=== PATIENT | female | born 1945 | race American Indian/Alaskan Native ===

== ENCOUNTER 2016-07-07 09:54 | Outpatient (CLI) | payer MEDICARE ==
[2016-07-07 10:46] LABS: Blood Urea Nitrogen 9 mg/dL (7-17)
[2016-07-07] MEDS ORDERED: NACL ONE (10:55)
--- NOTE | 2016-07-07 12:07 | Cat Scan Report ---
CT CHEST WITH CONTRAST INDICATION: Persistent cough, moderate persistent asthma. COMPARISON: None similar at this institution. FINDINGS: Chest CT performed following intravenous administration of 100 cc of Omnipaque 300 demonstrates proximal ascending aortic caliber of 4.2 cm AP as on axial image 112, series 2, tapering to approximately 2.8 cm at the aortic arch and 2.6 cm caliber along the proximal descending aorta. No dissection or focal suspicious pulmonary arterial filling defects. No effusion or size significant adenopathy. Patent central airway. Top normal heart size. Normal thyroid size and approximately 4 mm hypodensity on the left anteriorly. Multiple small calcified left hilar and infrahilar lymph nodes. Few small extreme left lung base calcified granulomas posteriorly measuring up to 5 mm also noted. Otherwise unremarkable lungs without significant emphysematous changes evident. Calcified bilateral breast implants. Nonspecific distal esophageal wall thickening, not excluded for gastroesophageal reflux and/or hiatal hernia, amongst others. Few splenic calcified granulomas and multiple bilateral renal cysts, the largest ovoid 4.5 x 2.7 cm at the left upper renal pole incidentally noted. A nonobstructing 4-5 mm right renal calculus inferiorly also seen. Mild thoracic dextroscoliosis apex about T5. Mild degenerative spurring at few levels as well. CONCLUSION: 1. No acute lung parenchymal abnormality in this patient with old healed granulomatous disease noted, as described. 2. Ascending aortic aneurysm incidentally seen. 3. Various other incidental findings, as above. Thank you for the opportunity to participate in this patient's care.
== END 2016-07-07 09:55 | disposition home or self-care (01) ==
LOC: CT 09:54
PROVIDERS: ATTEND Specialist
DX: J45.41 Moderate persistent asthma with (acute) exacerbation (principal); N28.1 Cyst of kidney, acquired; N20.0 Calculus of kidney; M41.84 Other forms of scoliosis, thoracic region; Z98.82 Breast implant status
CPT/HCPCS: 36415; 71260; 82565; 84520; Q9967